=== PATIENT | female | born 1960 | race Caucasian/White ===

== ENCOUNTER 2025-02-24 07:23 | Emergency (ER) | payer MEDICARE, OTHER ==
[~2025-02-24] VITALS: Ht 167.6 cm; Wt 73.3 kg
[~2025-02-24 07:23] MED LIST: CALCIUM + D SO1 EACH PO; CLARITIN10 MG PO; EQL SENNA-S TA1 EACH PO; FISH OIL 1,3601 EACH PO; KONDREMUL2.5 ML/5 M PO; MOTRIN IB200 MG PO; ONDANSETRON ODT8 MG PO; ONE DAILY FOR1 EACH PO; PERCOCET 5-3251 EACH PO
[2025-02-24 07:37] LABS: BASOPHILS 0.3 % (0-2); EOSINOPHILS 1.1 % (0-6); HEMATOCRIT 42.7 % (35.0-50.0); HEMOGLOBIN 14.7 g/dL (12.0-18.0); LYMPHOCYTES 20.4 % (24-44); MCH 30.8 (27-36); MCHC 34.3 g/dl (30-36); MCV 89.6 fl (81-99); MONOCYTES 4.5 % (0-12); NEUTROPHILS 73.7 % (39-80); PLATELET COUNT 248 K/uL (140-440); RBC 4.76 M/ul (4.3-5.7); RDW 13.3 (10.5-15.0)
[2025-02-24 07:52] LABS: ALBUMIN 3.9 g/dL (3.4-5.0); ALBUMIN/GLOBULIN RATIO 1.03 (1.1-2.4); ANION GAP 11.3 (7-21); BILIRUBIN, TOTAL 0.5 mg/dL (0.2-1.0); BUN/CREATININE RATIO 18.36 (6.0-28.6); CALCIUM 9.2 mg/dL (8.5-10.1); CREATININE, SERUM 0.98 mg/dL (0.55-1.02); POTASSIUM 3.3 mmol/L (3.5-5.1); PROTEIN, TOTAL 7.7 g/dL (6.4-8.2)
[2025-02-24 10:09] VITALS: BP 144/89
== END 2025-02-24 10:10 | disposition home or self-care (01) ==
LOC: ED 07:23
PROVIDERS: Emergency Medicine
DX: G45.9 Transient cerebral ischemic attack, unspecified (principal); Z91.018 Allergy to other foods
CPT/HCPCS: 36415; 70450; 70496; 70498; 70551; 80053; 85025; 99284-25; Q3014; Q9967

== ENCOUNTER 2025-06-01 10:39 | Day surgery (SDC) | payer MEDICARE, OTHER ==
[~2025-06-01] VITALS: Ht 167.6 cm; Wt 72.7 kg
[~2025-06-01 10:39] MED LIST changes: +IBLOOD GLUCOSE TEST STRIP 1 EA TEST VI PRN; +LACTATED RINGER'S 1,000 ML IV SCH; +LIDOCAINE HCL 1% 5 ML SDV INJ ONE; +MIDAZOLAM HCL 5 MG/5 ML VIAL IV PRN; +fentaNYL citrate 100 MCG/2 ML VIAL IV PRN
[2025-06-01 10:59] VITALS: BP 152/72
[2025-06-01] MEDS ORDERED: ADULT LOW DOSE81 MG PO (11:02)
[2025-06-01] MEDS ORDERED: METOPROLOL SUCC25 MG PO (11:02)
--- NOTE | 2025-06-01 12:25 | NUR ---
PT UPDATED ON SURGERY WAIT TIME. NO OTHER NEEDS AT THIS TIME. CALL LIGHT WITHIN REACH.
[2025-06-01] MEDS ORDERED: fentaNYL citrate 100 MCG/2 ML VIAL ONE (13:35)
[2025-06-01] MEDS ORDERED: MIDAZOLAM HCL 5 MG/5 ML VIAL ONE (13:35)
[2025-06-01 15:21] VITALS: BP 131/67
--- NOTE | 2025-06-01 15:42 | NUR ---
06/01/25 1542 Karolina Colbert 1435 PT ARRIVED IN PACU SLEEPY. ABD SOFT AND PASSING FLATUS. 1450 DR AT BEDSIDE. ALL QUESTIONS ANSWERED. 1500 RESTING. REU. 1515 SITTING UP IN BED SIPPING ON ICE TEA. 1525 DC INSTRUCTIONS GIVEN. 1532 LEFT VIA W/C.
--- NOTE | 2025-06-02 10:09 | OR ---
[facility] [address] [place], [place] [address] Signed DATE OF OPERATION: 06/01/2025 SURGEON: Aris Astudillo MD PREOPERATIVE DIAGNOSIS: Colon screening, history of lymphoid aggregate on colonoscopy in 2011. POSTOPERATIVE DIAGNOSIS: Low anorectal polypoid lesion, uncertain pathology. PROCEDURE PERFORMED: Total colonoscopy to cecum with biopsy of low anal lesion and biopsy of rectum. ANESTHESIA: Intravenous sedation, fentanyl 100 mcg, Versed 6 mg. INDICATION: A 65-year-old woman, patient of YANDY Burkett, was referred for colonoscopy. She last underwent colonoscopy in 2011, was found to have a lymphoid aggregate suggestive of hyperplastic polyp at that time. She has no current symptoms of bleeding, diarrhea, or constipation, and no family history of colon cancer. She is admitted to undergo colonoscopy, understanding the risk of bleeding, infection, perforation, and findings. Anorectal examination did show a soft polypoid lesion at the anal verge. It did not have the typical appearance of an anal carcinoma proper. It was biopsied endoscopically in the proximal portion. Remaining colon was normal except for diverticula. DESCRIPTION OF PROCEDURE: The patient was brought to the endoscopy suite and placed in lateral decubitus position, given intravenous sedation to the point of slurred speech and nystagmus. Digital rectal examination showed a soft polypoid lesion at the anal verge. An Olympus video colonoscope was passed in the rectum and manipulated throughout the colon, noting a few diverticula along the way. The scope was ultimately advanced to the cecum. Irrigation was undertaken to better visualize the cecum and the scope was then withdrawn. Examination upon withdrawal showed no sign of abnormality until the rectum itself, which showed mild inflammation. Biopsy was obtained. Further withdrawal showed a polypoid lesion that seemed to extend above and below the dentate line. Indeed, it would be considered a site where anal carcinoma could occur, though it did not have the typical appearance of anal carcinoma. Retroflex view was difficult to do and provide much more clarification. The scope was manipulated and allowed for at least 2 biopsies of that lesion as well as plain biopsy of the rectum itself. Scope was removed, and digital Electronically Signed By: ARIS ASTUDILLO MD 06/02/25 1009 PATIENT NAME: VALERI TURNER OPERATIVE REPORT DATE OF : 58 REPORT #: [id number] PHYSICIAN: ARIS ASTUDILLO MD PCP: HILARY SHAW REPORT IS CONFIDENTIAL AND NOT TO BE RELEASED WITHOUT AUTHORIZATION [facility] [address] [place], [place] [address] Signed examination once again undertaken, and visualization showing a what appeared to be an adenomatous polyp, wide lesion extending above and below the dentate line a bit. PLAN: Uncertain etiology of the lesion. Pathology is pending. We will see her back in the office in the next month in room 6 and examine this more fully. I doubt this represents a simple hemorrhoid, more likely a very low rectal adenomatous lesion or less likely actual malignancy. MD DAVID Young/WINTER /[id number] cc: YANDY Burkett Copies: HILARY SHAW ~ Electronically Signed By: ARIS ASTUDILLO MD 06/02/25 1009 PATIENT NAME: VALERI TURNER OPERATIVE REPORT DATE OF : 58 REPORT #: [id number] PHYSICIAN: ARIS ASTUDILLO MD PCP: HILARY SHAW REPORT IS CONFIDENTIAL AND NOT TO BE RELEASED WITHOUT AUTHORIZATION
--- NOTE | 2025-06-03 12:18 | PATH ---
[facility] [address] [place], [place] [address] Signed SPECIMEN(S): A RECTUM BIOPSY SPECIMEN(S): B PERIANAL POLYP SPECIMEN SOURCE: A. RECTUM BIOPSY B. PERIANAL POLYP CLINICAL HISTORY: Screening, anal verge lesion FINAL PATHOLOGIC DIAGNOSIS: A. Rectum biopsy: - Hyperplastic polyp (two fragments). B. Perianal polyp: - Hyperplastic polyp (four fragments). JVR:[facility] MICROSCOPIC EXAMINATION: Histologic sections of all submitted blocks are examined by light microscopy. These findings, together with the gross examination, support the pathologic diagnosis. GROSS DESCRIPTION: A. The specimen, labeled and designated "Ruslan, rectum biopsy," is received in formalin and consists of two rios soft tissue fragments, ranging from 0.1-0.3 cm. Entirely submitted in (A1). B. The specimen, labeled and designated "Ruslan, perianal polyp," is received in formalin and consists of four rios soft tissue fragments, ranging from 0.3-0.4 cm. Entirely submitted in (B1). VB (under the direct supervision of a pathologist) The Gross Description was prepared using a voice recognition system. The report was reviewed for accuracy; however, sound-alike word errors, addition and/or deletions may occur. If there is any question about this report, please contact Client Services. PERFORMING LABORATORY: Technical component was performed by [facility], [address] [place] [id number] (CLIA# [id number]). Professional interpretation was performed by [facility], [address] [place] [id number] (CLIA#: [id number]). PATIENT NAME: VALERI TURNER PATHOLOGY DATE OF : 58 REPORT #: [id number] PHYSICIAN: [facility] PCP: HILARY SHAW REPORT IS CONFIDENTIAL AND NOT TO BE RELEASED WITHOUT AUTHORIZATION [facility] [address] [place] [id number] Signed Diagnostician: Igor Butler MD Pathologist Electronically Signed 06/03/2025 Copies: ~ PATIENT NAME: VALERI TURNER PATHOLOGY DATE OF : 58 REPORT #: [id number] PHYSICIAN: [facility] PCP: HILARY SHAW REPORT IS CONFIDENTIAL AND NOT TO BE RELEASED WITHOUT AUTHORIZATION
== END 2025-06-01 15:32 | disposition home or self-care (01) ==
LOC: OPS 10:39 → DS 10:40 → OPS 13:00 → DS 14:00 → OPS 15:32
PROVIDERS: ATTEND Surgery
PROC: 0DBP8ZX Excision of Rectum, Via Natural or Artificial Opening Endoscopic, Diagnostic (ICD-10-PCS; 2025-06-01)
PROC: 0DBQ8ZX Excision of Anus, Via Natural or Artificial Opening Endoscopic, Diagnostic (ICD-10-PCS; principal; 2025-06-01 13:00)
DX: Z12.11 Encounter for screening for malignant neoplasm of colon (principal); K62.1 Rectal polyp; K62.0 Anal polyp; K57.30 Diverticulosis of large intestine without perforation or abscess without bleeding; I10 Essential (primary) hypertension; N99.3 Prolapse of vaginal vault after hysterectomy; Z79.82 Long term (current) use of aspirin; Z79.899 Other long term (current) drug therapy
CPT/HCPCS: 99153; G0500; J2250; J3010; J7121